=== PATIENT | female | born 1990 | race Caucasian/White ===

== ENCOUNTER 2018-06-15 16:28 | Emergency (ER) | payer OTHER ==
[2018-06-15 16:34] VITALS: BP 134/83; PULSE 95; TEMP 98.9; BMI 28.0
--- NOTE | 2018-06-15 17:43 | PDOC ---
History of Present Illness - General Chief Complaint: Injury Stated Complaint: SWELLING ON LT LEG Time Seen by Provider: 06/15/18 16:38 History Source: Patient Exam Limitations: No Limitations - History of Present Illness Initial Comments: 06/15/18 17:44 27 year old female with redness at suture site and injection site. Patient states s/p flight from [place] and is concerned about clot since she had long flight. Denies shortness of breath or calf pain. States after suturing to left lower leg noticed area to be erythematous and it is getting more erythematous and tender. Also reports tenderness and swelling to right shoulder where she got her tetanus shot. Denies fever, chills or drainage from either sites. Occurred: reports: last week Severity: Yes: mild Lower Extremity Pain Location: left: leg Method of Injury: Yes: fell Modifying Factors: improves with: immobilization, pain medication Lower Ext. Injury Location - Specific Injury Location Hips: bilateral hip: no evidence of injury Legs: left: soft tissue tenderness, ecchymosis, pain, swelling Knees: bilateral no evidence of injury Ankle: bilateral no evidence of injury Foot: bilateral foot no evidence of injury Comments:: right deltoid of tender erythematous and swollen Extremity Pain Location - Extremity Pain Location Extremity Pain Locations: right: arm, left: leg Past History - Past Medical History Allergies/Adverse Reactions: Allergies Allergy/AdvReac Type Severity Reaction Status Date / Time No Known Allergies Allergy Verified 06/15/18 16:34 Home Medications: Ambulatory Orders Cephalexin [Keflex] 500 mg PO TID #30 capsule 06/15/18 Ibuprofen 600 mg PO TID #21 tablet 06/15/18 COPD: No - Suicide/Smoking/Psychosocial Hx Smoking History: Never smoked Review of Systems - Review of Systems Able to Perform ROS?: Yes Is the patient limited Italian proficient: No Constitutional: No: Chills, Fever HEENTM: No: Throat Pain, Throat Swelling, Mouth Swelling Respiratory: No: Cough, Productive cough Musculoskeletal: No: Muscle Pain, Neck Pain Integumentary: Yes: Bruising, Erythema Neurological: No: Headache, Numbness, Paresthesia, Weakness Psychiatric: No: Frequent Crying, Stressors Hematologic/Lymphatic: No: Anemia, Blood Clots, Easy Bleeding *Physical Exam - Vital Signs Last Vital Signs Temp Pulse Resp BP Pulse Ox 98.9 F 95 H 18 134/83 99 06/15/18 16:31 12/01/18 16:31 06/15/18 16:31 06/15/18 16:31 06/15/18 16:31 - Physical Exam General Appearance: Yes: Nourished, Appropriately Dressed HEENT: positive: PAULA, TMs Normal, Pharynx Normal Neck: positive: Supple. 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 Mother requesting u/s of lower extremity to rule out clot. ice pack to injection site u/s of left lower leg Rx: keflex for wound infection patient instructed to return in 2 days for wound check 06/15/18 19:34 U/s as per tech' impression: no dvt noted, *DC/Admit/Observation/Transfer Diagnosis at time of Disposition: Wound infection, Pain of right upper arm - Discharge Dispostion Disposition: HOME Condition at time of disposition: Good Decision to Admit order: No - Prescriptions Prescriptions: Cephalexin [Keflex] 500 mg PO TID #30 capsule Ibuprofen 600 mg PO TID #21 tablet - Referrals Referrals: Patti Collins MD [Primary Care Provider] - 7 days - Patient Instructions Printed Discharge Instructions: DI for Suture Removal, How To Perform RICE ( Rest, Ice, Compress, Elevate) Additional Instructions: Please return in 2 days if noticed redness is worsening or drainage from wound Please take antibiotic as prescribed. Apply ice compress to right upper arm for 20-30 minutes at a time 4 to 4 times daily - Post Discharge Activity Forms/Work/School Notes: Back to Work
== END 2018-06-15 19:39 | disposition home or self-care (01) ==
LOC: JERFT 16:28
DX: T81.49XA Infection following a procedure, other surgical site, initial encounter (principal); L08.89 Other specified local infections of the skin and subcutaneous tissue
CPT/HCPCS: 93971-TC; 99281-25

== ENCOUNTER 2022-12-22 12:02 | Observation (INO) | payer OTHER ==
[2022-12-22 12:20] VITALS: BMI 23.3
[2022-12-22] MEDS ORDERED: VANCOMYCIN 1 GM in D5W (PRE-DOCKED) 1,000 MG/250 ML (RESTRICTED TO ID ONLY IVPB ONE (12:24)
[2022-12-22] MEDS ORDERED: CEFEPIME HCL/D5W 1 GM/50 ML BAG IVPB ONE (12:25)
[2022-12-22] MEDS ORDERED: VANCOMYCIN 1,000 MG VIAL (RESTRICTED TO ID ONLY) ONE (12:30)
[2022-12-22] MEDS ORDERED: CEFEPIME 1 GM in DEXTROSE 5%-WATER 100 ML IVPB ONE (12:45)
[2022-12-22 13:05] LABS: INR 1.32 (0.83-1.09); PROTHROMBIN TIME (PATIENT) 15.3 SEC (9.7-13.0)
[2022-12-22 13:08] LABS: ACTIVATED PTT 35.8 SECONDS (25.2-36.5)
[2022-12-22 13:09] LABS: HCG,QUALITATIVE URINE Negative
[2022-12-22 13:12] LABS: ALBUMIN 3.3 g/dl (3.4-5.0); BILIRUBIN,TOTAL 0.4 mg/dl (0.2-1); CALCIUM 9.2 mg/dl (8.5-10); CREATININE 0.5 mg/dl (0.55-1.3); HEMATOCRIT 41.9 % (32.4-45.2); HEMOGLOBIN 14.1 G/dL (10.7-15.3); MCH 30.6 pg (25.7-33.7); MCHC 33.6 g/dl (32.0-36.0); MEAN CELL VOLUME 90.8 fl (80-96); MEAN PLT VOLUME 7.7 fl (7.5-11.1); RBC 4.61 10^6/uL (3.60-5.2); RDW 13.1 % (11.6-15.6); WHITE BLOOD COUNT 8.8 10^3/uL (4.0-10.8)
[2022-12-22 13:21] LABS: EPITHELIAL CELLS FEW /hpf
[2022-12-22 13:52] LABS: VENOUS O2 SATURATION 45.7 % (70-80); VENOUS PCO2 43.3 mmHg (38-52); VENOUS PH 7.384 (7.310-7.410)
[2022-12-22] MEDS ORDERED: ACETAMINOPHEN 325 MG TABLET (FP) PO PRN (15:52)
[2022-12-22] MEDS ORDERED: KETOROLAC TROMETHAMINE 15 MG/ML VIAL IVPUSH PRN (15:52)
[2022-12-22] MEDS ORDERED: LACTATED RINGERS SOLUTION 1,000 ML IV SCH (16:00)
[2022-12-22] MEDS ORDERED: DOCUSATE SODIUM 100 MG CAPSULE (FP) PO PRN (19:25)
[2022-12-22] MEDS: CEFEPIME 1 GM in DEXTROSE 5%-WATER 100 ML IVPB SCH (21:12)
[2022-12-23] MEDS: VANCOMYCIN 1 GM/200 ML PREMIX BAG (RESTRICTED TO ID ONLY) IVPB SCH ×3 (00:05→23:10)
[2022-12-23 08:31] LABS: INR 1.21 (0.83-1.09)
[2022-12-23 08:34] LABS: ACTIVATED PTT 33.5 SECONDS (25.2-36.5)
[2022-12-23 08:38] LABS: ALBUMIN 2.8 g/dl (3.4-5.0); BILIRUBIN,TOTAL 0.3 mg/dl (0.2-1); CALCIUM 8.9 mg/dl (8.5-10); CREATININE 0.5 mg/dl (0.55-1.3); MAGNESIUM 1.7 mg/dL (1.8-2.4); PHOSPHOROUS 3.9 mg/dl (2.5-4.9); POTASSIUM 4.8 mmol/L (3.5-5.1)
[2022-12-23] MEDS: CEFEPIME 1 GM in DEXTROSE 5%-WATER 100 ML IVPB SCH (09:09)
[2022-12-23] MEDS ORDERED: morphine CARPU-JECT 2 MG/1 ML DISP.SYRIN IVPUSH ONE (09:43)
[2022-12-23] MEDS ORDERED: FLUCONAZOLE 150 MG TABLET PO ONE (09:44)
[2022-12-23 10:41] LABS: BASO % 0.9 % (0-2.0); HEMATOCRIT 34.2 % (32.4-45.2); HEMOGLOBIN 11.2 GM/dL (10.7-15.3); LYMPH % 20.9 % (8-40); MCH 29.7 pg (25.7-33.7); MCHC 32.9 g/dl (32.0-36.0); MEAN CELL VOLUME 90.4 fl (80-96); MEAN PLT VOLUME 7.8 fl (7.5-11.1); MONO % 9.2 % (3.8-10.2); PLATELET COUNT 452 10^3/uL (134-434); RBC 3.78 M/mm3 (3.60-5.2); RDW 13.1 % (11.6-15.6); WHITE BLOOD COUNT 5.8 K/mm3 (4.0-10.0)
[2022-12-23] MEDS: CEFEPIME 1 GM in DEXTROSE 5%-WATER - 50 ML IVPB SCH (16:45)
[2022-12-23] MEDS: CEFEPIME HCL/D5W 1 GM/50 ML BAG IVPB SCH (17:10)
[2022-12-24] MEDS: CEFEPIME 1 GM in DEXTROSE 5%-WATER - 50 ML IVPB SCH ×3 (00:45→16:36)
[2022-12-24] MEDS: VANCOMYCIN 1 GM/200 ML PREMIX BAG (RESTRICTED TO ID ONLY) IVPB SCH ×3 (07:50→12:26)
[2022-12-24] MEDS: ENOXAPARIN NA (PORCINE) 40 MG/0.4 ML DISP.SYRIN SQ SCH (12:25)
[2022-12-25] MEDS: CEFEPIME 1 GM in DEXTROSE 5%-WATER - 50 ML IVPB SCH ×2 (00:50→09:06)
[2022-12-25 08:16] LABS: ALBUMIN 2.9 g/dl (3.4-5.0); BILIRUBIN,TOTAL 0.4 mg/dl (0.2-1); CALCIUM 8.9 mg/dl (8.5-10); CREATININE 0.6 mg/dl (0.55-1.3); POTASSIUM 4.8 mmol/L (3.5-5.1)
[2022-12-25] MEDS: ENOXAPARIN NA (PORCINE) 40 MG/0.4 ML DISP.SYRIN SQ SCH (09:06)
[2022-12-25 09:55] LABS: BASO % 1.1 % (0-2.0); EOS % 4.6 % (0-4.5); HEMATOCRIT 34.9 % (32.4-45.2); HEMOGLOBIN 11.6 GM/dL (10.7-15.3); LYMPH % 28.4 % (8-40); MCH 29.9 pg (25.7-33.7); MCHC 33.4 g/dl (32.0-36.0); MEAN CELL VOLUME 89.7 fl (80-96); MEAN PLT VOLUME 7.9 fl (7.5-11.1); NEUT % 55.9 % (42.8-82.8); PLATELET COUNT 402 10^3/uL (134-434); RBC 3.89 M/mm3 (3.60-5.2); RDW 12.8 % (11.6-15.6)
[2022-12-25] MEDS: VANCOMYCIN 1 GM/200 ML PREMIX BAG (RESTRICTED TO ID ONLY) IVPB SCH ×2 (12:40)
[2022-12-25 13:18] VITALS: TEMP 98.2
[2022-12-25 13:20] VITALS: BP 123/66; PULSE 63; RESP 18
== END 2022-12-25 14:47 | disposition home or self-care (01) ==
LOC: FER 12:02 → FM/S 15:35
PROVIDERS: ADMIT Internal Medicine
PROC: 3E03329 Introduction of Other Anti-infective into Peripheral Vein, Percutaneous Approach (ICD-10-PCS; principal; 2022-12-22)
PROC: 3E023GC Introduction of Other Therapeutic Substance into Muscle, Percutaneous Approach (ICD-10-PCS; 2022-12-22)
PROC: 3E0333Z Introduction of Anti-inflammatory into Peripheral Vein, Percutaneous Approach (ICD-10-PCS; 2022-12-22)
PROC: 3E0337Z Introduction of Electrolytic and Water Balance Substance into Peripheral Vein, Percutaneous Approach (ICD-10-PCS; 2022-12-22)
PROC: 3E033NZ Introduction of Analgesics, Hypnotics, Sedatives into Peripheral Vein, Percutaneous Approach (ICD-10-PCS; 2022-12-22)
DX: T81.49XA Infection following a procedure, other surgical site, initial encounter (principal); X58.XXXA Exposure to other specified factors, initial encounter
CPT/HCPCS: 36415; 74177-TC; 80053; 81003; 81015; 82803; 83605; 83735; 84100; 84703; 85025; 85027; 85610; 85730; 86850; 86900; 86901; 87040; 87070; 87186; 87205; 87635; 99285-25; G0378

== ENCOUNTER 2023-06-11 22:52 | Emergency (ER) | payer OTHER ==
[2023-06-11 23:04] VITALS: BP 145/90; PULSE 83; RESP 16; TEMP 98; BMI 24.9
== END 2023-06-11 23:32 | disposition home or self-care (01) ==
LOC: FER 22:52
DX: Z01.419 Encounter for gynecological examination (general) (routine) without abnormal findings (principal)
CPT/HCPCS: 99283-25; 99284-25